=== PATIENT | male | born 1970 | race African-American/Black ===

== ENCOUNTER 2017-12-28 08:30 | Emergency (ER) | payer BC ==
[2017-12-28 09:58] VITALS: BP 130/90
--- NOTE | 2017-12-28 10:52 | UC ---
Rd Valdez Stephanie, scribed for Caterina Ibarra MD on 12/28/17 at 0943 . FLU HPI - HPI Summary HPI Summary: The pt is a 47 y/o M presenting to with c/o productive cough (yellow/green) that began approx 12/20. Symptoms include voice hoarseness, tired, fatigue. No sob, no rash. No GI isssues. + hoarse voice last couple days. Has been taking decongestants. PCP has been at [facility], but retired, as such Mr. Cuellar is in the process of establishing a new pcp at [facility]. Hx HTN "borderline." - History of Current Complaint Chief Complaint: UCRespiratory Stated Complaint: COUGH SORE THROAT Time Seen by Provider: 12/28/17 09:13 Hx Obtained From: Patient Onset/Duration: Lasting Weeks - 1, Still Present Severity Currently: Mild Pain Intensity: 1 Pain Scale Used: 0-10 Numeric Associated Signs & Symptoms: Positive: Cough - Allergy/Home Medications Allergies/Adverse Reactions: Allergies Allergy/AdvReac Type Severity Reaction Status Date / Time No Known Allergies Allergy Verified 12/28/17 08:45 Home Medications: Home Medications Dextromethorphan-Phenylephrine [Vicks Dayquil Cold & Flu 10-5-325 mg/15Ml] 30 ml PO Q4HR PRN 12/28/17 [History Confirmed 12/28/17] Ibuprofen [Ibuprofen 200 MG] 200 mg PO DAILY PRN 12/28/17 [History Confirmed 01/13] PMH/Surg Hx/FS Hx/Imm Hx Previously Healthy: Yes Cardiovascular History: Hypertension - Surgical History Surgical History: None - Family History Known Family History: Positive: Diabetes, Other - Social History Occupation: Employed Full-time Lives: With Family Alcohol Use: None Substance Use Type: None Smoking Status (MU): Never Smoked Tobacco Review of Systems Constitutional: Negative Skin: Negative Eyes: Negative ENT: Negative Respiratory: Other - see HPI Cardiovascular: Negative Gastrointestinal: Negative Genitourinary: Negative Motor: Negative Neurovascular: Negative Musculoskeletal: Negative Neurological: Negative, Other - no h/a Psychological: Negative All Other Systems Reviewed And Are Negative: Yes Physical Exam Triage Information Reviewed: Yes Vital Signs: Initial Vital Signs Temp 98.3 F 12/28/17 08:47 Pulse 96 12/28/17 08:47 Resp 18 12/28/17 08:47 BP 154/107 12/28/17 08:47 Pulse Ox 98 12/28/17 08:47 Vital Signs Reviewed: Yes - Additional Comments Appearance: Well-Nourished Eye Exam: Normal ENT Exam: L TM clear and nml. pharynx red, uvula edematous. Neck: Normal, No adenopathy appreciated Respiratory Exam: Normal, no dyspnea, no tachypnea, normal respiratory rate Chest non-tender, Lungs clear, Normal breath sounds, No respiratory distress, No accessory muscle use Cardiovascular Exam: Normal Cardiovascular: Heart rate regular, good general skin color, good capillary refill Abdominal Exam: Normal Abdomen Description: Nontender, No Organomegaly, Soft Bowel Sounds: Present Musculoskeletal Exam: Normal Musculoskeletal: Strength Intact Neurological Exam: Normal: nonfocal, grossly intact Psychological Exam: Normal: conversing easily and appropriately Skin Exam: Normal: no visible or reported rash Flu Course/Dx - Course Course Of Treatment: Influenza and strep neg. D/w pt avoidance of decongestants , and the need for bp recheck. Tx plan / coa reviewed. Questions as posed answered to the best of my ability. - Differential Dx/Diagnosis Provider Diagnoses: Bronchitis with laryngitis. High blood pressure Discharge - Discharge Plan Condition: Stable Disposition: HOME Prescriptions: Azithromyxin PUMA (NF) [Z-Puma (Zithromax) 250 mg tabs #6] 2 tab PO .TODAY, THEN 1 DAILY #6 tab Patient Education Materials: Acute Bronchitis (ED), Hypertension (ED) Referrals: No Primary Care Phys,NOPCP [Primary Care Provider] - Additional Instructions: Your blood pressure was elevated during today's visit, 12/28/17. Please follow up with your primary care provider (Theresa) within in 1-2 weeks. Seek medical attention for worse or new problems in the meantime. Please establish a primary care physician as soon as possible. Seek medical attention for any worse or new problems. Please avoid treatment with decongestants as they tend to elevate blood pressure. The documentation as recorded by the Rd mondragon Stephanie accurately reflects the service I personally performed and the decisions made by me, Caterina Ibarra MD.
== END 2017-12-28 10:43 | disposition home or self-care (01) ==
LOC: UCEAST 08:30
DX: J40 Bronchitis, not specified as acute or chronic (principal); J04.0 Acute laryngitis; I10 Essential (primary) hypertension
CPT/HCPCS: 87502; 87651; 99202; G0463